=== PATIENT | female | born 2000 | race African-American/Black ===

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

== ENCOUNTER 2019-05-12 15:16 | Emergency (ER) | payer OTHER ==
[2019-05-12 16:30] LABS: #Eosinphils 0.2 thou/uL (0.0-0.7); #Lymphocytes 2.2 thou/uL (1.20-3.40); #Monocytes 0.4 thou/uL (0.11-0.59); #Neutrophils 3.9 thou/uL (1.40-6.50); %Basophils 0.7 % (0.0-1.0); %Eosinophils 3.1 % (0.0-10.0); %Lymphocytes 32.1 % (28.0-48.0); %Monocytes 6.4 % (0.0-4.0); %Neutrophils 57.8 % (31.0-61.0); Hemoglobin 10.1 g/dL (12.0-16.0); Mean Corpuscular HGB CONC 30.8 g/dL (32.0-36.0); Mean Corpuscular Hemoglobin 21.4 pg (25.0-35.0); Mean Corpuscular Volume 69.2 fL (78.0-98.0); Mean Platelet Volume 7.7 fL (7.4-10.4); Platelet Count 313 thou/uL (130-400); RBC Distribution Width 20.3 % (11.5-14.5); Red Blood Cell (RBC) Count 4.75 mill/uL (4.00-5.20); White Blood Cell (WBC) Count 6.7 thou/uL (4.8-10.8)
[2019-05-12 16:47] LABS: Anisocytosis SLIGHT = 6-15 cells (100X) (0-5/hpf); Elliptocytes MODERATE= 6-15 cells (100X) (0-1/hpf); Giant Platelets SLIGHT; Hypochromia SLIGHT = 6-15 cells (100X) (0-5/hpf); Large Platelets SLIGHT; MDiff Complete? YES; Microcytosis MODERATE=15-30 cells (100X) (0-5/hpf); Ovalocytes MODERATE= 6-15 cells (100X) (0-1/hpf); Platelet Morphology Comment Appears Adequate; Polychromasia SLIGHT = 2-3 cells (100X) (0-2/hpf); Schistocytes SLIGHT = 2-5 cells (100X) (0-1/hpf); Tear Drops SLIGHT = 2-5 cells (100X) (0-1/hpf)
[2019-05-12 16:55] LABS: BHCG - Serum Negative (NEGATIVE); Pregs Control Background? CLEAR/WHITE (CLR/WHITE); Pregs Control Bar Appear? YES (CONTROL BAR)
== END 2019-05-12 17:11 | disposition home or self-care (01) ==
LOC: ERS 15:16
DX: O72.2 Delayed and secondary postpartum hemorrhage (principal)
CPT/HCPCS: 36415; 84703; 85025; 86900; 86901; 99284

== ENCOUNTER 2019-12-23 13:46 | Emergency (ER) | payer OTHER ==
[2019-12-24 15:25] LABS: SARS-CoV-2 MS2 Positive; SARS-CoV-2 N Gene Positive; SARS-CoV-2 S Gene Positive; SARS-CoV-2 orf1ab Positive
== END 2019-12-23 14:40 | disposition home or self-care (01) ==
LOC: ERS 13:46
DX: U07.1 COVID-19 (principal)
CPT/HCPCS: 87635; 99283; U0003

== ENCOUNTER 2021-04-13 07:33 | Emergency (ER) | payer OTHER | END 2021-04-13 08:51 | disposition home or self-care (01) | LOC: ERS 07:33 | DX: R19.7 Diarrhea, unspecified (principal); R11.2 Nausea with vomiting, unspecified | CPT/HCPCS: 99283 ==

== ENCOUNTER 2021-09-07 09:18 | Emergency (ER) | payer OTHER | END 2021-09-07 11:20 | disposition home or self-care (01) | LOC: ERS 09:18 | DX: J10.1 Influenza due to other identified influenza virus with other respiratory manifestations (principal) | CPT/HCPCS: 71045; 87804 ==

== ENCOUNTER 2022-11-23 09:38 | Outpatient (CLI) | payer OTHER | END 2022-11-23 09:39 | disposition home or self-care (01) | LOC: BICULT 09:38 | PROVIDERS: ATTEND Nurse Practitioner Women's Health | DX: N63.42 Unspecified lump in left breast, subareolar (principal) ==